=== PATIENT | female | born 1985 | race Asian ===

== ENCOUNTER 2017-04-21 15:30 | Emergency (ER) | payer OTHER ==
[~2017-04-21] VITALS: Ht 152.4 cm; Wt 47.6 kg
[2017-04-21] MEDS ORDERED: Dicyclomine 10mg Cap ORAL ONE (16:00)
--- NOTE | 2017-04-21 16:52 | Emergency Room Report ---
History of Present Illness General Chief Complaint: Diarrhea Source: Patient Present Illness HPI 32-year-old female presents to the emergency department complaining of multiple episodes of diarrhea 5 days. Patient reports she is to be in and she also also lactose intolerant. Patient states that her symptoms were immediate onset after eating Ramen which she later found out had both poultry broth and cream in it. Patient denies nausea or vomiting she reports abdominal bloating and loose stools. Denies fevers or chills. Patient denies blood in the stools or black tarry stools. Patient reports she took some Pepto yesterday with no relief. Patient denies recent travel or ill contacts. She denies recent antibiotic use. She denies abdominal pain or tenderness. Denies CP, Palpitations, LOC, AMS, dizziness, Changes in Vision, Sensation, paresthesias, or a sudden severe headache. Allergies: Coded Allergies: Dairy (Verified Allergy, Unknown, 04/21/17) diarrhea NO KNOWN DRUG ALLERGIES (Verified Allergy, Unknown, 12/13/14) Patient History Past Medical History: see triage record Past Surgical History: none Pertinent Family History: none Last Menstrual Period: 04/05/17 Now: No : 0 Immunizations: UTD Reviewed Nursing Documentation: PMH: Agreed, PSxH: Agreed Nursing Documentation-PMH Past Medical History: No Stated History Hx Neurological Problems: No - Double jaw surgery in 2005 Review of Systems All Other Systems: negative except mentioned in HPI Physical Exam Vital Signs Date Time Temp Pulse Resp B/P (MAP) Pulse Ox O2 Delivery O2 Flow Rate FiO2 04/21/17 15:44 98.2 69 18 125/75 99 Room Air 98.2 Sp02 EP Interpretation: reviewed, normal General Appearance: no apparent distress, alert, GCS 15, non-toxic Head: normocephalic, atraumatic ENT: hearing grossly normal, normal voice Neck: full range of motion Respiratory: lungs clear, normal breath sounds, speaking full sentences Cardiovascular #1: regular rate, rhythm Gastrointestinal: normal bowel sounds - hyperactive in all 4 quadrants, non tender, soft Musculoskeletal: back normal, gait/station normal, normal range of motion Neurologic: alert, oriented x3, responsive, motor strength/tone normal, sensory intact, speech normal, grossly normal Psychiatric: judgement/insight normal Skin: normal color, no rash, warm/dry, well hydrated Medical Decision Making PA Attestation Dr. Burton is my supervising Physician whom patient management has been discussed with. Diagnostic Impression: Primary Impression: Diarrhea Qualified Codes: R19.7 - Diarrhea, unspecified ER Course 32-year-old female presents to the emergency department complaining of multiple episodes of diarrhea 5 days. Patient reports she is to be in and she also also lactose intolerant. Patient states that her symptoms were immediate onset after eating Ramen which she later found out had both poultry broth and cream in it. Patient denies nausea or vomiting she reports abdominal bloating and loose stools. Denies fevers or chills. Patient denies blood in the stools or black tarry stools. Patient reports she took some Pepto yesterday with no relief. Patient denies recent travel or ill contacts. She denies recent antibiotic use. She denies abdominal pain or tenderness. Denies CP, Palpitations, LOC, AMS, dizziness, Changes in Vision, Sensation, paresthesias, or a sudden severe headache. Ddx considered but are not limited to GE, colitis, acute appy, SBO, lactose- intolerance, food allergy, c. diff. just to name a few. Vital signs: pt. is afebrile, H&PE are most consistent with non-complicated diarrhea, no evidence to suggest dehydration or acute abdomen on physical exam. ORDERS: -None required at this time, the dx is clinical. ED INTERVENTIONS: -Bentyl PO d.w pt. conservative tx, encouraged hydration, and gave ED return precautions. DISCHARGE: At this time pt. is stable for d/c to home. Will provide printed patient care instructions, and any necessary prescriptions. Care plan and follow up instructions have been discussed with the patient prior to discharge. Last Vital Signs Date Time Temp Pulse Resp B/P (MAP) Pulse Ox O2 Delivery O2 Flow Rate FiO2 04/21/17 15:44 98.2 69 18 125/75 99 Room Air 98.2 Disposition: HOME, SELF-CARE Condition: Stable Scripts Dicyclomine Hcl* (DICYCLOMINE HCL*) 10 Mg Capsule 10 MG PO QID, #20 CAP Prov: Eileen Yanez 04/21/17 Patient Instructions: Diarrhea, Adult, Diarrhea, Infant, Diet for Lactose Intolerance, Adult Additional Instructions: Take medications as directed. Follow up with a Primary Care Provider in 3-5 days, even if your symptoms have resolved. --Please review list of primary care clinics, if you do not already have a primary care provider Return sooner to ED if new symptoms occur, or current symptoms become worse. - Please note that this Emergency Department Report was dictated using [employer] technology software, occasionally this can lead to erroneous entry secondary to interpretation by the dictation equipment. Eileen Yanez Apr 21, 2017 16:52
[2017-04-21] MEDS ORDERED: DICYCLOMINE HCL10 MG PO (16:53)
[2017-04-21 17:04] VITALS: BP 111/80
== END 2017-04-21 17:05 | disposition home or self-care (01) ==
LOC: EMR 16:25
DX: R19.7 Diarrhea, unspecified (principal)
CPT/HCPCS: 99283